=== PATIENT | male | born 1995 ===

== ENCOUNTER 2018-02-24 07:32 | Emergency (ER) | payer OTHER, BC ==
[2018-02-24] MEDS ORDERED: Ibuprofen 800 MG Tab PO ONE (07:42)
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
[2018-02-24 09:28] VITALS: BP 141/91
--- NOTE | 2018-02-24 09:55 | CR ---
EXAM DATE: 02/24/18 PATIENT'S AGE: 23 Patient: CHAYITO HAGER Facility: [place], [place] Site . Site : 1995 Study: XRay Extremity Left Wrist [id number]/19/2018 7:56:34 AM Ordering Physician: Xander Erwin Final Report: INDICATION: Pain left wrist. TECHNIQUE: Two-view study left wrist. FINDINGS: Undisplaced fracture through the distal radius through the area of old growth plate with a fracture line measuring 3.7 mm in width. Associated soft tissue swelling overlying the distal radius. No other abnormalities are identified. The fracture does not involve the articular surface. Impression : Undisplaced fracture distal radius through the old growth plate with associated soft tissue swelling. Dictated by Arianne Dowd MD @ Feb 24 2018 7:56AM (Electronic Signature) Report Signed by Proxy. ALDO
== END 2018-02-24 09:09 | disposition home or self-care (01) ==
LOC: MW.ED 07:32
DX: S52.502A Unspecified fracture of the lower end of left radius, initial encounter for closed fracture (principal); V49.9XXA Car occupant (driver) (passenger) injured in unspecified traffic accident, initial encounter
CPT/HCPCS: 29125; 73100; 99283; A9270

== ENCOUNTER 2023-08-09 18:22 | Emergency (ER) | payer BC ==
[2023-08-09] MEDS ORDERED: Ondansetron 4 MG/2 ML SDV IVPUSH STA (18:28)
[2023-08-09] MEDS ORDERED: Sodium Chloride 0.9% 1,000 ML IV STA ×2 (18:28→19:33)
[2023-08-09 18:36] VITALS: BP 168/97
[2023-08-09 19:06] LABS: BASOPHILS ABSOLUTE AUTO 0.03 K/uL (0.00-0.20); BASOPHILS PERCENT AUTO 0.5 % (0.0-1.0); EOSINOPHILS ABSOLUTE AUTO 0.23 K/uL (0.00-0.45); HEMATOCRIT 44.7 % (42.0-52.0); HEMOGLOBIN 16.1 g/dL (14.0-18.0); IMMATURE GRAN ABSOLUTE AUTO 0.01 K/uL (0.00-0.05); IMMATURE GRAN PERCENT AUTO 0.2 % (0.0-0.4); LYMPHOCYTES ABSOLUTE AUTO 1.34 K/uL (1.00-4.80); LYMPHOCYTES PERCENT AUTO 23.5 % (24.0-44.0); MEAN CORPUSCULAR VOLUME 86.1 fL (83.0-99.0); MEAN PLATELET VOLUME 8.9 fL (9.4-12.4); MONOCYTES ABSOLUTE AUTO 0.59 K/uL (0.00-0.80); MONOCYTES PERCENT AUTO 10.3 % (0.0-8.0); NEUTROPHILS ABSOLUTE AUTO 3.51 K/uL (1.80-7.70); NEUTROPHILS PERCENT AUTO 61.5 % (41.0-71.0); PLATELET COUNT,PLT 200 K/uL (150-400); RED BLOOD CELL COUNT 5.19 M/uL (4.52-5.90); WHITE BLOOD CELL COUNT,WBC 5.71 K/uL (3.9-11.3)
[2023-08-09 19:11] LABS: CORONAVIRUS COVID-19 NAA NEGATIVE (NEGATIVE); INFLUENZA A NAA NEGATIVE (NEGATIVE); INFLUENZA B NAA NEGATIVE (NEGATIVE); RESPIRATORY SYNCYTIAL VIR NAA NEGATIVE (NEGATIVE)
[2023-08-09 19:33] LABS: A/G RATIO 1.3 (0.9-1.6); ALBUMIN 4.1 g/dL (3.4-5.0); BILIRUBIN TOTAL 0.3 mg/dL (0.2-1.0); CALCIUM 8.8 mg/dL (8.5-10.1); CARBON DIOXIDE,CO2 28.1 mmol/L (21.0-32.0); CREATININE 0.9 mg/dL (0.8-1.3); EST CRCL DRUG DOSING (CG) 127.3 mL/min; POTASSIUM,K 3.5 mmol/L (3.5-5.1); PROTEIN TOTAL,TP 7.3 g/dL (6.4-8.2)
[2023-08-09] MEDS ORDERED: Loperamide 2 MG Cap PO STA (20:36)
[2023-08-09 21:13] VITALS: PULSE 71
== END 2023-08-09 21:12 | disposition home or self-care (01) ==
LOC: MW.ED 18:22
DX: A08.4 Viral intestinal infection, unspecified (principal); Z20.822 Contact with and (suspected) exposure to COVID-19
CPT/HCPCS: 0241U; 36415; 80053; 83690; 83735; 85025; 96361; 96374; 99284; A9270; J2405; J7030

== ENCOUNTER 2025-07-04 22:19 | Emergency (ER) | payer BC, OTHER ==
[2025-07-05 00:47] VITALS: BP 145/76; PULSE 103
== END 2025-07-05 00:46 | disposition home or self-care (01) ==
LOC: MW.ED 22:19
DX: J18.9 Pneumonia, unspecified organism (principal); Z79.899 Other long term (current) drug therapy
CPT/HCPCS: 71046; 87428; 99283; A9270; 99284